=== PATIENT | male | born 1965 | race Caucasian/White ===

== ENCOUNTER 2016-12-14 08:33 | Inpatient (IN) | payer BC ==
[~2016-12-14] VITALS: Ht 177.8 cm; Wt 79.0 kg
[~2016-12-14 08:33] MED LIST: CLC150 PO
[2016-12-14] MEDS ORDERED: ONDANSETRON INJ 2 MG/ML 2 ML VIAL IV STA (08:45)
[2016-12-14] MEDS ORDERED: ACETAMINOPHEN 500 MG TAB PO STA (08:45)
[2016-12-14] MEDS ORDERED: KETOROLAC TROMETHAMINE 30 MG/ML VIAL IV STA (08:45)
[2016-12-14] MEDS ORDERED: LORAZEPAM 2 MG/ML 1 ML VIAL IV STA (08:51)
[2016-12-14] MEDS ORDERED: CEFTRIAXONE SOD INJ 2,000 MG in DEXTROSE 5% 50ML 50 ML IV STA (08:51)
[2016-12-14] MEDS ORDERED: DEXAMETHASONE SOD INJ 10 MG/ML VIAL IV ONE (09:00)
--- NOTE | 2016-12-14 09:01 | EMERGENCY ROOM VISIT NOTE ---
History Report prepared by Cristal: Jourdan Vazquez Under the Supervision of: Dr. Nash Bryant M.D. First contact with patient: 08:43 Chief Complaint: FEVER Stated Complaint: FEVER, HEADACHE History of Present Illness The patient is a 51 year old male who presents to the Emergency Room with complaints of a persistent illness that started around 2 days ago. He states that he went to bed 3 days ago feeling fine, and overnight, he started getting a headache, which kept him up. The patient says he rarely gets headaches. He continued to have a headache even after taking pain medication. He describes the headache as the worst headache of his life, and a 9 out of 10 in severity. He is nauseated, and has had a worsening fever that started around the same time as the onset of the headache. The patient notes a stiff neck and joint stiffness. He went to his family clinic this morning, and was told to come here for concern of meningitis. The patient denies a cough, current sore throat, vomiting, diarrhea, rash, or urinary symptoms. The patient took Advil last evening with no relief. He did have a bout of laryngitis a week ago, but there was no overlap with this current illness. He denies any heart or liver issues. He is allergic to Penicillins. Source of History: patient Onset: 2 days ago Position: other (global - illness) Symptom Intensity: worst headache of life Timing: other (persistent) Associated Symptoms: + fevers, + headache, + nausea, No cough, No diarrhea, No rash, No sorethroat, No urinary symptoms, No vomiting Note: Associated symptoms: Stiff neck and joint stiffness. Review of Systems See HPI for pertinent positives & negatives. A total of 10 systems reviewed and were otherwise negative. Past Medical & Surgical Medical Problems: (1) No chronic problems (2) Viral meningitis, unspecified Family History FH: heart disease Social History Smoking Status: Never Smoker Marital Status: single Occupation Status: employed Current/Historical Medications Scheduled Atorvastatin (Lipitor), 10 MG PO HS Bupropion Hcl (Wellbutrin Xl), 150 MG PO QAM Allergies Coded Allergies: Penicillins (Unverified Allergy, Mild, 12/14/16) Physical Exam Vital Signs Date Time Temp Pulse Resp B/P Pulse Ox O2 Delivery O2 Flow Rate FiO2 12/14/16 12:10 93 Room Air 12/14/16 12:00 82 16 118/70 12/14/16 11:00 112/68 12/14/16 10:56 37.5 82 16 116/66 93 Room Air 12/14/16 09:50 86 15 142/88 93 Room Air 12/14/16 09:20 90 12/14/16 09:12 96 Room Air 12/14/16 08:38 37.8 89 16 142/86 96 Physical Exam GENERAL: Patient is in no acute distress. HEENT: No acute trauma, normocephalic atraumatic, mucous membranes moist, no nasal congestion, no scleral icterus. No throat erythema. NECK: Tenderness to posterior neck muscle bilaterally where they insert onto scalp. No adenopathy. Trachea is midline. Neck soreness to flex the chin to chest. LUNGS: Clear to auscultation bilaterally, no wheeze, no rhonchi, breath sounds equal. HEART: Without murmurs gallops or rubs, regular rate and rhythm. ABDOMEN: Soft, nontender, bowel sounds positive, no hernias, no peritonitis. EXTREMITIES: No cyanosis or edema, full range of motion of all the joints without pain or difficulty, no signs for acute trauma. NEUROLOGIC: Oriented x 3, no acute motor or sensory deficits, no focal weakness. SKIN: No rash, no jaundice, no diaphoresis. Medical Decision & Procedures ER Provider Diagnostic Interpretation: X ray results and stated below per my interpretation and radiologist interpretation. Other radiology results and stated below per my review and radiologist interpretation: CT HEAD WITHOUT CONTRAST (CT) CLINICAL HISTORY: Severe headache COMPARISON STUDY: No previous studies for comparison. TECHNIQUE: Axial CT of the brain is performed from the vertex to the skull base. IV contrast was not administered for this examination. CT DOSE: 614.27 mGy.cm FINDINGS: No intra or extra-axial mass lesions are visualized. There is no CT evidence of acute cortical infarction. There is no evidence of midline shift. There is no acute hemorrhage. No calvarial fractures are visualized. There is no evidence of pathologic ventricular dilatation. There is no evidence of acute sinusitis IMPRESSION: No acute intracranial findings Electronically signed by: Jan Hyde M.D. 12/14/2016 9:46 AM Dictated Date/Time: 12/14/2016 9:42 AM CHEST ONE VIEW PORTABLE CLINICAL HISTORY: Evaluate Fever/Sepsis COMPARISON STUDY: None FINDINGS: The heart is normal in size. There is no failure. There is no focal pulmonary consolidation. There is an 11 mm nodule at the right lung base, possibly representing a summation with a nipple shadow. No pleural effusions are visualized.[ IMPRESSION: 11 mm opacity at the right lung base. This may represent a summation with a nipple shadow. A follow-up study with nipple markers and oblique views could be obtained for confirmation. There is no acute parenchymal consolidation. Electronically signed by: Jan Hyde M.D. 12/14/2016 9:20 AM Dictated Date/Time: 12/14/2016 9:19 AM Laboratory Results 12/14/16 09:15 Red Blood Count 4.36, Mean Corpuscular Volume 93.6, Mean Corpuscular Hemoglobin 33.3, Mean Corpuscular Hemoglobin Concent 35.5, Mean Platelet Volume 9.1, Neutrophils (%) (Auto) 73.4, Lymphocytes (%) (Auto) 20.1, Monocytes (%) (Auto) 5.0, Eosinophils (%) (Auto) 1.2, Basophils (%) (Auto) 0.2, Neutrophils # (Auto) 6.34, Lymphocytes # (Auto) 1.74, Monocytes # (Auto) 0.43, Eosinophils # (Auto) 0.10, Basophils # (Auto) 0.02 12/14/16 09:15 Test 12/14/16 09:15 12/14/16 09:25 12/14/16 09:55 12/14/16 10:35 White Blood Count 8.64 K/uL (4.8-10.8) Red Blood Count 4.36 M/uL (4.7-6.1) Hemoglobin 14.5 g/dL (14.0-18.0) Hematocrit 40.8 % (42-52) Mean Corpuscular Volume 93.6 fL (80-100) Mean Corpuscular Hemoglobin 33.3 pg (25-34) Mean Corpuscular Hemoglobin Concent 35.5 g/dl (32-36) Platelet Count 229 K/uL (130-400) Mean Platelet Volume 9.1 fL (7.4-10.4) Neutrophils (%) (Auto) 73.4 % Lymphocytes (%) (Auto) 20.1 % Monocytes (%) (Auto) 5.0 % Eosinophils (%) (Auto) 1.2 % Basophils (%) (Auto) 0.2 % Neutrophils # (Auto) 6.34 K/uL (1.4-6.5) Lymphocytes # (Auto) 1.74 K/uL (1.2-3.4) Monocytes # (Auto) 0.43 K/uL (0.11-0.59) Eosinophils # (Auto) 0.10 K/uL (0-0.5) Basophils # (Auto) 0.02 K/uL (0-0.2) RDW Standard Deviation 41.7 fL (36.4-46.3) RDW Coefficient of Variation 12.4 % (11.5-14.5) Immature Granulocyte % (Auto) 0.1 % Immature Granulocyte # (Auto) 0.01 K/uL (0.00-0.02) Anion Gap 8.0 mmol/L (3-11) Est Creatinine Clear Calc Drug Dose 67.9 ml/min Estimated GFR () 72.2 Estimated GFR (Non- 62.3 BUN/Creatinine Ratio 6.2 (10-20) Calcium Level 8.6 mg/dl (8.5-10.1) Total Bilirubin 1.1 mg/dl (0.2-1) Aspartate Amino Transf (AST/SGOT) 20 U/L (15-37) Alanine Aminotransferase (ALT/SGPT) 24 U/L (12-78) Alkaline Phosphatase 68 U/L (45-117) Total Protein 6.8 gm/dl (6.4-8.2) Albumin 3.9 gm/dl (3.4-5.0) Globulin 2.9 gm/dl (2.5-4.0) Albumin/Globulin Ratio 1.3 (0.9-2) Lyme Disease IgG Antibody NEG (NEG) Lyme Disease IgM Antibody NEG (NEG) Influenza Type A (RT-PCR) Neg for Influ A (NEG) Influenza Type B (RT-PCR) Neg for Influ B (NEG) Urine Color YELLOW Urine Appearance CLEAR (CLEAR) Urine pH 5.5 (4.5-7.5) Urine Specific [place] 1.019 (1.000-1.030) Urine Protein NEG (NEG) Urine Glucose (UA) NEG (NEG) Urine Ketones TRACE (NEG) Urine Occult Blood NEG (NEG) Urine Nitrite NEG (NEG) Urine Bilirubin NEG (NEG) Urine Urobilinogen NEG (NEG) Urine Leukocyte Esterase NEG (NEG) CSF Color COLORLESS CSF Appearance CLEAR CSF WBC 170 /uL (0-5) CSF RBC 0 /uL (0) CSF Polynuclear WBCs 3.0 % CSF Mononuclear WBCs 97.0 % CSF Xanthrochromic NO XANTHOCHROMIA CSF Cell Count Tube # 4 CSF Mononuclear WBCs % % CSF Polynuclear WBCs (%) % CSF Chemistry Tube # 2 CSF Glucose 47 mg/dl (40-70) CSF Total Protein 91.1 mg/dl (15.0-45.0) Laboratory results reviewed by me. Medications Administered Medications (Trade) Dose Ordered Sig/Darrin Route Start Time Stop Time Status Last Admin Dose Admin Ondansetron HCl (Zofran Inj) 4 mg NOW STAT IV 12/14/16 08:45 12/14/16 08:48 DC 12/14/16 09:13 4 MG Morphine Sulfate (MoRPHine SULFATE INJ) 4 mg Q15M PRN IV 12/14/16 08:45 12/14/16 12:15 DC 12/14/16 09:53 4 MG Ketorolac Tromethamine (Toradol Inj) 30 mg NOW STAT IV 12/14/16 08:45 12/14/16 08:48 DC 12/14/16 09:18 30 MG Acetaminophen (Tylenol Tab) 1,000 mg NOW STAT PO 12/14/16 08:45 12/14/16 08:48 DC 12/14/16 09:20 1,000 MG Lorazepam (Ativan Inj) 0.5 mg NOW STAT IV 12/14/16 08:51 12/14/16 08:53 DC 12/14/16 09:19 0.5 MG Dexamethasone Sodium Phosphate 10 mg 10 mg NOW ONCE IV 12/14/16 09:00 12/14/16 09:01 DC 12/14/16 09:16 10 MG Ceftriaxone Sodium/Dextrose (Rocephin Inj/D5 50ml) 70 ml @ 100 mls/hr ONE STAT IV 12/14/16 08:51 12/14/16 09:32 DC 12/14/16 09:49 100 MLS/HR Hydromorphone HCl 0.5 mg 0.5 mg NOW STAT IV 12/14/16 10:41 12/14/16 10:43 DC 12/14/16 10:54 0.5 MG Sodium Chloride (Nss 500ml) 500 ml @ 999 mls/hr Q31M STAT IV 12/14/16 10:43 12/14/16 11:13 DC 12/14/16 10:56 999 MLS/HR Hydromorphone HCl (Dilaudid Inj) 0.5 mg Q3H PRN IV 12/14/16 12:15 12/28/16 12:14 12/14/16 13:57 0.5 MG Procedure Lumbar Puncture Indication: Headache and stiff neck with fever. Verbal consent was obtained after the risks and benefits were explained, including but not limited to headache, bleeding/clotting, scarring, infection, pain, and bone/joint/nerve damage. At this time, the risks of the procedure are less than the risks of NOT performing the procedure. A time out was taken and the correct patient and site identified. The patient was placed in the seated position and the back was prepped with betadine and draped in the standard fashion. The L3 intervertebral space was identified, anesthetized locally with 1 % lidocaine without epinephrine, and the spinal needle was inserted through the skin with the bevel parallel to the dural fibers. The needle was carefully advanced into the lumbar cistern and 4 tubes of clear CSF was obtained. The stylet was replaced and the needle was removed. A bandaid was placed and the patient was placed in the supine position. The patient tolerated the procedure well and there were no complications. ED Course 0844: The patient was evaluated in room B9. A complete history and physical exam was performed. 0845: Ordered Tylenol Tab 1000 mg PO, Toradol Inj 30 mg IV, Morphine Sulfate Inj 4 mg IV PRN, Zofran Inj 4 mg IV. 0851: Ordered Ceftriaxone Sodium 2000 mg/Dextrose 70 ml @ 100 mls/hr IV, Ativan Inj 0.5 mg IV. 0900: Ordered Decadron Inj 10 mg IV. 1024: I performed a lumbar puncture on the patient. It went well. 1041: Ordered Dilaudid Inj 0.5 mg IV. 1043: Ordered NSS 500 ml @ 999 mls/hr IV. 1139: Upon reexamination the patient is resting comfortably. I discussed results and treatment plan with the patient. He verbalizes agreement and understanding. The patient will be evaluated for further management. 1143: I discussed the patient with Dr. Rolon - [facility] [place] cutter operator asbestos shingle - he will evaluate the patient for further treatment. Medical Decision Differential diagnosis includes but is not limited to meningitis, viral illness , pharyngitis, intracranial bleeding, Lyme disease, pneumonia, UTI. There is no leukocytosis or concerning anemia. No significant electrolyte abnormality, kidney failure or hepatitis. Influenza testing is negative. Lyme disease testing is negative. Brain CT shows no acute bleed or mass effect. Chest x-ray does not show pneumonia or CHF, a possible nipple shadow was noted on the chest film. Urinalysis does not show evidence for infection. The patient was at risk for meningitis, a lumbar puncture was performed without complication. The CSF results do show findings consistent with meningitis. The patient received IV saline, IV ceftriaxone, IV Decadron. He was given IV morphine, IV Zofran and IV Dilaudid. He received IV Toradol. The patient received oral Tylenol. The patient seems more comfortable. I do think admission/observation is warranted given the meningitis findings, I did talk to the patient, I talked with case management. The on-call hospitalist was consulted. Consults Time Called: 1140 Consulting Physician: Dr. Gonzales WRIGHT cutter operator asbestos sh[employer] Returned Call: 1143 I discussed the patient with Dr. Gonzales WRIGHT cutter operator [employer] shingle - he will evaluate the patient for further treatment. Impression Primary Impression: Meningitis Scribe Attestation The scribe's documentation has been prepared under my direction and personally reviewed by me in its entirety. I confirm that the note above accurately reflects all work, treatment, procedures, and medical decision making performed by me. Departure Information Dispostion Being Evaluated By Hospitalist Referrals Ralph Philip M.D. (PCP) Patient Instructions My [facility]
[2016-12-14] MEDS ORDERED: BUPRTAB PO (09:07)
[2016-12-14] MEDS ORDERED: ATOR10TA88 PO (09:07)
[2016-12-14 09:19] LABS: BASO % 0.2 %; BASO ABS # 0.02 K/uL (0-0.2); COMPLETE YES; EOS % 1.2 %; HEMATOCRIT 40.8 % (42-52); IG% 0.1 %; LYMPH % 20.1 %; LYMPH ABS # 1.74 K/uL (1.2-3.4); MEAN CELL VOLUME 93.6 fL (80-100); MEAN CORPUSCULAR HEMOGLOBIN 33.3 pg (25-34); MEAN CORPUSCULAR HGB CONC 35.5 g/dl (32-36); MEAN PLATELET VOLUME 9.1 fL (7.4-10.4); NEUT % 73.4 %; PLATELET COUNT 229 K/uL (130-400); RED BLOOD COUNT 4.36 M/uL (4.7-6.1); WHITE BLOOD COUNT 8.64 K/uL (4.8-10.8)
[2016-12-14] MEDS: MoRPHine SULFATE 4 MG/ML 1 ML CARP\\VIAL IV PRN ×2 (09:19→09:53)
--- NOTE | 2016-12-14 09:21 | DIAGNOSTIC IMAGING REPORT ---
CHEST ONE VIEW PORTABLE CLINICAL HISTORY: Evaluate Fever/Sepsis COMPARISON STUDY: None FINDINGS: The heart is normal in size. There is no failure. There is no focal pulmonary consolidation. There is an 11 mm nodule at the right lung base, possibly representing a summation with a nipple shadow. No pleural effusions are visualized.[ IMPRESSION: 11 mm opacity at the right lung base. This may represent a summation with a nipple shadow. A follow-up study with nipple markers and oblique views could be obtained for confirmation. There is no acute parenchymal consolidation. Electronically signed by: Jan Hyde M.D. 12/14/2016 9:20 AM Dictated Date/Time: 12/14/2016 9:19 AM
[2016-12-14 09:34] LABS: BUN/CREATININE RATIO 6.2 (10-20); CALCIUM 8.6 mg/dl (8.5-10.1); CREATININE 1.3 mg/dl (0.60-1.40); POTASSIUM 4.1 mmol/L (3.5-5.1)
[2016-12-14 09:38] LABS: ALB/GLOB RATIO 1.3 (0.9-2)
--- NOTE | 2016-12-14 09:47 | DIAGNOSTIC IMAGING REPORT ---
CT HEAD WITHOUT CONTRAST (CT) CLINICAL HISTORY: Severe headache COMPARISON STUDY: No previous studies for comparison. TECHNIQUE: Axial CT of the brain is performed from the vertex to the skull base. IV contrast was not administered for this examination. CT DOSE: 614.27 mGy.cm FINDINGS: No intra or extra-axial mass lesions are visualized. There is no CT evidence of acute cortical infarction. There is no evidence of midline shift. There is no acute hemorrhage. No calvarial fractures are visualized. There is no evidence of pathologic ventricular dilatation. There is no evidence of acute sinusitis IMPRESSION: No acute intracranial findings Electronically signed by: Jan Hyde M.D. 12/14/2016 9:46 AM Dictated Date/Time: 12/14/2016 9:42 AM
[2016-12-14 10:12] LABS: URINE APPEARANCE CLEAR (CLEAR); URINE BILIRUBIN NEG (NEG); URINE COLOR YELLOW; URINE NITRITE NEG (NEG); URINE PH 5.5 (4.5-7.5); URINE SPECIFIC GRAVITY 1.019 (1.000-1.030); UROBILINOGEN NEG (NEG); ZZUR CULT IF INDIC CLEAN CATCH NO
[2016-12-14 10:16] LABS: MANUAL MICROSCOPIC REQUIRED? NO; REVIEW REQ? NO
[2016-12-14] MEDS ORDERED: LIDOCAINE HCL 1% 20 ML VIAL ONE (10:18)
[2016-12-14 10:27] LABS: LYME DISEASE AB IGG NEG (NEG)
[2016-12-14 10:28] LABS: LYME DISEASE AB IGM NEG (NEG)
[2016-12-14] MEDS ORDERED: HYDROmorphone INJ 2 MG/ML SYR/VIAL IV STA (10:41)
[2016-12-14] MEDS ORDERED: SODIUM CHLORIDE 0.9% 500ML 500 ML IV STA (10:43)
[2016-12-14 11:00] LABS: INFLUENZA A PCR Neg for Influ A (NEG); INFLUENZA B PCR Neg for Influ B (NEG)
[2016-12-14 11:08] LABS: CSF CHEMISTRY TUBE # 2
[2016-12-14 11:13] LABS: CSF TOTAL PROTEIN 91.1 mg/dl (15.0-45.0)
[2016-12-14 12:10] VITALS: O2SAT 93; Ht 177.8 cm; Wt 79.0 kg
[2016-12-14 12:11] LABS: CSF APPEARANCE CLEAR; CSF COLOR COLORLESS; CSF XANTHOCHROMIC NO XANTHOCHROMIA
[2016-12-14] MEDS ORDERED: ZOLPIDEM TARTRATE 5 MG TAB PO PRN (12:15)
[2016-12-14] MEDS ORDERED: ACETAMINOPHEN 325 MG TAB PO PRN (12:15)
[2016-12-14] MEDS ORDERED: ONDANSETRON INJ 2 MG/ML 2 ML VIAL IV PRN (12:15)
[2016-12-14] MEDS ORDERED: POLYETHYLENE (MIRALAX) 17 GM PACK PO PRN (12:15)
[2016-12-14] MEDS ORDERED: MAGNESIUM HYDROXIDE SUSP 30 ML UDC PO PRN (12:15)
[2016-12-14] MEDS ORDERED: ALUMINUM/MAGNESIUM/SIMETH (MAALOX MAX) 30 ML UDC PO PRN (12:15)
[2016-12-14 13:07] VITALS: O2SAT 93
--- NOTE | 2016-12-14 13:07 | History and Physical ---
History & Physical Date & Time of Service: Dec 14, 2016 at 12:27 Chief Complaint: Fever, Headache Primary Care Physician: Ralph Philip M.D. History of Present Illness Source: patient 51 y/o M history of depression and HPL. Pt had laryngitis 1 week prior which improved without treatment. He had been to [place] over the weekend and upon returning developed an intense headache which kept him awake overnight and did not respond to standard [id number] treatment. He describes an associated fever and nausea. He did not have visual changes. He denies current throat pain, productive cough, vomiting, diarrhea or dysuria. He does not recall any sick contacts during his [employer] trip[place] in the surrounding area. An LP was performed in the ER the results of which appear consistent with viral meningitis. Past Medical/Surgical History Medical Problems: (1) No chronic problems Status: Chronic Family History FH: heart disease Father from aspiration pneumonia due to Parkinson's disease Social History Smoking Status: Never Smoker Marital Status: single Occupational Status: employed Multi-Drug Resistant Organisms History of MDRO: No Allergies Coded Allergies: Penicillins (Unverified Allergy, Mild, 12/14/16) Home Medications Scheduled Atorvastatin (Lipitor), 10 MG PO HS Bupropion Hcl (Wellbutrin Xl), 150 MG PO QAM Review of Systems Constitutional: + chills, + fever, + sweats Eyes: No eye pain, No worsening of vision ENT: + sore throat (Larungitis - resolved), No hearing loss, No nasal symptoms , No unusual epistaxis Respiratory: No cough, No sputum, No wheezing Cardiovascular: No PND, No chest pain, No orthopnea Abdomen: No nausea, No pain, No vomiting Musculoskeletal: No joint pain Genitourinary - Male: No dysuria, No hematuria Neurologic: + problem reported (Severe headache), No memory loss, No paralysis Psychiatric: No anhedonism, No depression symptoms Endocrine: No fatigue Hematologic / Lymphatic: No abnormal bleeding/bruising Integumentary: No rash Allergic / Immunologic: No environmental allergies Physical Exam Vital Signs Date Time Temp Pulse Resp B/P Pulse Ox O2 Delivery O2 Flow Rate FiO2 12/14/16 10:56 37.5 82 16 116/66 93 Room Air 12/14/16 09:50 86 15 142/88 93 Room Air 12/14/16 09:20 90 12/14/16 09:12 96 Room Air 12/14/16 08:38 37.8 89 16 142/86 96 General Appearance: WD/WN, no apparent distress Head: normocephalic, atraumatic Eyes: normal inspection, PERRL, EOMI Neck: + pertinent finding (Some neck stiffness is present ) Respiratory/Chest: chest non-tender, lungs clear, normal breath sounds, no respiratory distress, no accessory muscle use Cardiovascular: regular rate, rhythm, no edema, no gallop, no JVD, no murmur, normal peripheral pulses Abdomen/GI: normal bowel sounds, non tender, soft Back: normal inspection, no CVA tenderness, no muscle spasm, normal range of motion Extremities/Musculoskelatal: normal inspection, no calf tenderness, normal capillary refill, no pedal edema, normal range of motion Neurologic/Psych: battery starter II-XII nml as tested, no motor/sensory deficits, alert, normal mood/affect, normal reflexes, oriented x 3, + pertinent finding (No significant photophobia) Skin: normal color, warm/dry, no rash Diagnostics Laboratory Results Results Past 24 Hours Test 12/14/16 09:15 12/14/16 09:25 12/14/16 09:55 12/14/16 10:35 Range/Units White Blood Count 8.64 4.8-10.8 K/uL Red Blood Count 4.36 4.7-6.1 M/uL Hemoglobin 14.5 14.0-18.0 g/dL Hematocrit 40.8 42-52 % Mean Corpuscular Volume 93.6 80-100 fL Mean Corpuscular Hemoglobin 33.3 25-34 pg Mean Corpuscular Hemoglobin Concent 35.5 32-36 g/dl Platelet Count 229 130-400 K/uL Mean Platelet Volume 9.1 7.4-10.4 fL Neutrophils (%) (Auto) 73.4 % Lymphocytes (%) (Auto) 20.1 % Monocytes (%) (Auto) 5.0 % Eosinophils (%) (Auto) 1.2 % Basophils (%) (Auto) 0.2 % Neutrophils # (Auto) 6.34 1.4-6.5 K/uL Lymphocytes # (Auto) 1.74 1.2-3.4 K/uL Monocytes # (Auto) 0.43 0.11-0.59 K/uL Eosinophils # (Auto) 0.10 0-0.5 K/uL Basophils # (Auto) 0.02 0-0.2 K/uL RDW Standard Deviation 41.7 36.4-46.3 fL RDW Coefficient of Variation 12.4 11.5-14.5 % Immature Granulocyte % (Auto) 0.1 % Immature Granulocyte # (Auto) 0.01 0.00-0.02 K/uL Sodium Level 141 136-145 mmol/L Potassium Level 4.1 3.5-5.1 mmol/L Chloride Level 108 98-107 mmol/L Carbon Dioxide Level 25 21-32 mmol/L Anion Gap 8.0 3-11 mmol/L Blood Urea Nitrogen 8 7-18 mg/dl Creatinine 1.30 0.60-1.40 mg/dl Est Creatinine Clear Calc Drug Dose 67.9 ml/min Estimated GFR () 72.2 Estimated GFR (Non- 62.3 BUN/Creatinine Ratio 6.2 10-20 Random Glucose 106 70-99 mg/dl Calcium Level 8.6 8.5-10.1 mg/dl Total Bilirubin 1.1 0.2-1 mg/dl Aspartate Amino Transf (AST/SGOT) 20 15-37 U/L Alanine Aminotransferase (ALT/SGPT) 24 12-78 U/L Alkaline Phosphatase 68 45-117 U/L Total Protein 6.8 6.4-8.2 gm/dl Albumin 3.9 3.4-5.0 gm/dl Globulin 2.9 2.5-4.0 gm/dl Albumin/Globulin Ratio 1.3 0.9-2 Lyme Disease IgG Antibody NEG NEG Lyme Disease IgM Antibody NEG NEG Influenza Type A (RT-PCR) Neg for Influ A NEG Influenza Type B (RT-PCR) Neg for Influ B NEG Urine Color YELLOW Urine Appearance CLEAR CLEAR Urine pH 5.5 4.5-7.5 Urine Specific [place] 1.019 1.000-1.030 Urine Protein NEG NEG Urine Glucose (UA) NEG NEG Urine Ketones TRACE NEG Urine Occult Blood NEG NEG Urine Nitrite NEG NEG Urine Bilirubin NEG NEG Urine Urobilinogen NEG NEG Urine Leukocyte Esterase NEG NEG CSF Color COLORLESS CSF Appearance CLEAR CSF WBC 170 0-5 /uL CSF RBC 0 0 /uL CSF Polynuclear WBCs 3.0 % CSF Mononuclear WBCs 97.0 % CSF Xanthrochromic NO XANTHOCHROMIA CSF Cell Count Tube # 4 CSF Mononuclear WBCs % % CSF Polynuclear WBCs (%) % CSF Chemistry Tube # 2 CSF Glucose 47 40-70 mg/dl CSF Total Protein 91.1 15.0-45.0 mg/dl Test 12/14/16 12:12 Range/Units Microbiology Results 12/14/16 Blood Culture, Received Pending 12/14/16 Blood Culture, Received Pending 12/14/16 Gram Stain - Final, Resulted 12/14/16 CSF Culture, Resulted Pending Diagnostic Radiology No acute findings on head CT Impression Assessment and Plan 51 y/o M history of depression and HPL. Pt had laryngitis 1 week prior which improved without treatment. He had been to [place] over the weekend and upon returning developed an intense headache which kept him awake overnight and did not respond to standard [id number] treatment. He describes an associated fever and nausea. An LP was performed in the ER the results of which appear consistent with viral meningitis. 1) Meningitis - likely viral - pt was provided with a dose of antibiotics and Decadron prior to the LP results - The results are more consistent with viral than bacterial meningitis. We will request an ID consult and treat supportively with analgesics and IVF 2) HPL - cont Lipitor 3) Depression - cont Wellbutrin SCDs only due to LP - full code Total time for this admit including review of labs, records, meds, imaging - discussion with pt and ER attending - 35 min Level of Care Med/Surg Resuscitation Status FULL RESUSCITATION VTE Prophylaxis VTE Risk Assessment Done? Y/N: Yes Risk Level: Low Given or contraindicated: SCD's
[2016-12-14 13:20] VITALS: BP 153/83; PULSE 83; TEMP 36.7; O2SAT 94
[2016-12-14] MEDS: D5W AND NSS 1,000 ML IV SCH ×2 (13:57→21:33)
[2016-12-14] MEDS: HYDROmorphone INJ 0.5 MG/0.5 ML SYR IV PRN ×2 (13:57→20:03)
[2016-12-14 15:07] VITALS: BP 119/76; PULSE 74; TEMP 36.6; O2SAT 95
--- NOTE | 2016-12-14 15:26 | Medical Consult ---
Consultation Date of Consultation: Dec 14, 2016. Attending Physician: Arturo Wright MD Reason for Consultation: Meningitis History of Present Illness Patient is a 51 yo male who presented to the ED with concerns of severe headache and neck pain. The patient had just returned from a conference in [facility] when he began to have fever, neck pain, and headache at home. He described the headache as the worst headache of his life and a 9-10/10 pain. He could not move his head at all without severe pain. He also felt like every vertebrae of his neck was hurting him when he would walk or move. He was evaluated at his PCP's office prior to presentation but was told to come to the ED due to concerns for meningitis. The patient otherwise has had no associated symptoms. He did have a sore throat and laryngitis last week. His sore throat has resolved but his voice is not 100% yet. Since admission, the patient had a CT scan of the head which showed no acute process, CXR which showed 11 mm opacity of the RLL which could be a nipple shadow and otherwise no acute process , and LP was completed. CSF showed 170 WBCs and elevated protein. Lyme screens were negative. Flu PCR negative as well. CSF gram stain is showing no organisms but CSF culture and blood cultures are pending. Patient did receive a dose of IV Ceftriaxone this morning. His headache is a 7/10 currently. He states that he has no history of HSV 1 or 2 that he knows of. He gets tested for HIV yearly and has been negative in the past. He was last tested about 1 year ago. Past Medical/Surgical History Medical Problems: (1) Meningitis Status: Acute Medical Problems: (1) No chronic problems (2) Viral meningitis, unspecified Family History FH: heart disease Noncontributory Social History Smoking Status: Never Smoker Marital Status: single Occupation Status: employed Allergies Coded Allergies: Penicillins (Unverified Allergy, Mild, 12/14/16) Home Medications Reported Home Medications Medications Dose Route/Sig Max Daily Dose Days Date Category Lipitor (Atorvastatin Calcium) 10 Mg Tab 10 Mg PO HS 12/14/16 Reported Wellbutrin Xl (Bupropion Hcl) 150 Mg Tab 150 Mg PO QAM 30 12/14/16 Reported Current Inpatient Medications Current Inpatient Medications Medications (Trade) Dose Ordered Sig/Darrin Route Start Time Stop Time Status Last Admin Dose Admin Hydromorphone HCl (Dilaudid Inj) 0.5 mg Q3H PRN IV 12/14/16 12:15 12/28/16 12:14 12/14/16 13:57 0.5 MG Ketorolac Tromethamine 15 mg 15 mg Q6H PRN IV 12/14/16 18:00 12/16/16 12:00 Dextrose/Sodium Chloride (D5W And Nss) 1,000 ml @ 125 mls/hr Q8H IV 12/14/16 13:30 01/13/17 13:29 12/14/16 13:57 125 MLS/HR Acetaminophen (Tylenol Tab) 650 mg Q4H PRN PO 12/14/16 12:15 01/13/17 12:14 Al Hydrox/Mg Hydrox/Simethicone (Maalox Max Susp) 15 ml Q4H PRN PO 12/14/16 12:15 01/13/17 12:14 Magnesium Hydroxide (Milk Of Magnesia Susp) 30 ml Q6H PRN PO 12/14/16 12:15 01/13/17 12:14 Polyethylene (Miralax Powder Packet) 17 gm DAILY PRN PO 12/14/16 12:15 01/13/17 12:14 Zolpidem Tartrate (Ambien Tab) 5 mg HSZ PRN PO 12/14/16 12:15 01/13/17 12:14 Ondansetron HCl (Zofran Inj) 4 mg Q6H PRN IV 12/14/16 12:15 01/13/17 12:14 Atorvastatin Calcium (Lipitor Tab) 10 mg HS PO 12/14/16 21:00 01/13/17 20:59 Bupropion HCl (Wellbutrin-Xl Tab) 150 mg QAM PO 12/15/16 08:00 01/14/17 08:59 Review of Systems Constitutional: + chills, + fatigue, + fever, + sweats Eyes: No worsening of vision ENT: + problem reported (laryngitis last week- now almost completely resolved) , + sore throat (last week- now resolved), No hearing loss Respiratory: No cough, No shortness of breath Cardiovascular: No chest pain, No palpitations Abdomen: + nausea (this morning- now resolved), No diarrhea, No pain, No vomiting Musculoskeletal: + joint pain (neck pain), No calf pain, No swelling Genitourinary - Male: No dysuria, No hematuria Neurologic: + problem reported (severe headache 07/18 on admission, now 04/17) Integumentary: No itch, No rash Physical Exam Date Time Temp Pulse Resp B/P Pulse Ox O2 Delivery O2 Flow Rate FiO2 12/14/16 15:07 36.6 74 20 119/76 95 Room Air 12/14/16 13:20 36.7 83 18 153/83 94 Room Air 12/14/16 13:07 81 16 118/70 93 12/14/16 12:29 81 12/14/16 12:10 93 Room Air 12/14/16 12:00 82 16 118/70 12/14/16 11:00 112/68 12/14/16 10:56 37.5 82 16 116/66 93 Room Air 12/14/16 09:50 86 15 142/88 93 Room Air 12/14/16 09:20 90 12/14/16 09:12 96 Room Air 12/14/16 08:38 37.8 89 16 142/86 96 General Appearance: WD/WN, no apparent distress Head: normocephalic, atraumatic Eyes: normal inspection, sclerae normal ENT: hearing grossly normal Neck: supple, trachea midline Respiratory/Chest: chest non-tender, lungs clear, normal breath sounds, no respiratory distress, no accessory muscle use Cardiovascular: regular rate, rhythm, no murmur Abdomen/GI: normal bowel sounds, non tender, soft Extremities/Musculoskelatal: normal range of motion Neurologic/Psych: alert, normal mood/affect Skin: normal color, warm/dry, no rash Laboratory Results CT HEAD WITHOUT CONTRAST (CT) CLINICAL HISTORY: Severe headache COMPARISON STUDY: No previous studies for comparison. TECHNIQUE: Axial CT of the brain is performed from the vertex to the skull base. IV contrast was not administered for this examination. CT DOSE: 614.27 mGy.cm FINDINGS: No intra or extra-axial mass lesions are visualized. There is no CT evidence of acute cortical infarction. There is no evidence of midline shift. There is no acute hemorrhage. No calvarial fractures are visualized. There is no evidence of pathologic ventricular dilatation. There is no evidence of acute sinusitis IMPRESSION: No acute intracranial findingsv RUN DATE: 12/14/16 [facility] LAB PAGE 1 RUN TIME: 1157 Specimen Inquiry PATIENT: OSMAN SMALL Femi LOC: [facility] U # : [id number] AGE/SX: 51/M ROOM: REG : 12/14/[address]: Nash Bryant M.D. : 1965 BED: DIS : STATUS: REG ER TLOC: SPEC #: [id number] NIKOLAY: 12/14/16 STATUS: RES REQ #: [id number] RECD: 12/14/[address]: Nash Bryant M.D. SOURCE: CSF ENTR: 12/14/[address]: Ralph Philip M.D. SPDESC: ORDERED: CSF CULT/SMR COMMENTS: Comments to Deputy Sheriff Custody TUBE # 3 TUBE # TO USE FOR SPINAL FLUID CELL CULTURE= 3 Procedure Result Verified Site GRAM STAIN Final 12/14/16-1157 RESULT MANY WBCs SEEN NO ORGANISMS SEEN CSF CULTURE PENDING Item Value Date Time Gram Stain - Final Resulted 12/14/16 1035 Cerebral Spinal Fluid Blood Culture Received 12/14/16 0905 Blood Pending Blood Culture Received 12/14/16 0900 Blood Pending Last 24 Hours Test 12/14/16 09:15 12/14/16 09:25 12/14/16 09:55 12/14/16 10:35 White Blood Count 8.64 K/uL Red Blood Count 4.36 M/uL Hemoglobin 14.5 g/dL Hematocrit 40.8 % Mean Corpuscular Volume 93.6 fL Mean Corpuscular Hemoglobin 33.3 pg Mean Corpuscular Hemoglobin Concent 35.5 g/dl Platelet Count 229 K/uL Mean Platelet Volume 9.1 fL Neutrophils (%) (Auto) 73.4 % Lymphocytes (%) (Auto) 20.1 % Monocytes (%) (Auto) 5.0 % Eosinophils (%) (Auto) 1.2 % Basophils (%) (Auto) 0.2 % Neutrophils # (Auto) 6.34 K/uL Lymphocytes # (Auto) 1.74 K/uL Monocytes # (Auto) 0.43 K/uL Eosinophils # (Auto) 0.10 K/uL Basophils # (Auto) 0.02 K/uL RDW Standard Deviation 41.7 fL RDW Coefficient of Variation 12.4 % Immature Granulocyte % (Auto) 0.1 % Immature Granulocyte # (Auto) 0.01 K/uL Sodium Level 141 mmol/L Potassium Level 4.1 mmol/L Chloride Level 108 mmol/L Carbon Dioxide Level 25 mmol/L Anion Gap 8.0 mmol/L Blood Urea Nitrogen 8 mg/dl Creatinine 1.30 mg/dl Est Creatinine Clear Calc Drug Dose 67.9 ml/min Estimated GFR () 72.2 Estimated GFR (Non- 62.3 BUN/Creatinine Ratio 6.2 Random Glucose 106 mg/dl Calcium Level 8.6 mg/dl Total Bilirubin 1.1 mg/dl Aspartate Amino Transf (AST/SGOT) 20 U/L Alanine Aminotransferase (ALT/SGPT) 24 U/L Alkaline Phosphatase 68 U/L Total Protein 6.8 gm/dl Albumin 3.9 gm/dl Globulin 2.9 gm/dl Albumin/Globulin Ratio 1.3 Lyme Disease IgG Antibody NEG Lyme Disease IgM Antibody NEG Influenza Type A (RT-PCR) Neg for Influ A Influenza Type B (RT-PCR) Neg for Influ B Urine Color YELLOW Urine Appearance CLEAR Urine pH 5.5 Urine Specific [place] 1.019 Urine Protein NEG Urine Glucose (UA) NEG Urine Ketones TRACE Urine Occult Blood NEG Urine Nitrite NEG Urine Bilirubin NEG Urine Urobilinogen NEG Urine Leukocyte Esterase NEG CSF Color COLORLESS CSF Appearance CLEAR CSF WBC 170 /uL CSF RBC 0 /uL CSF Polynuclear WBCs 3.0 % CSF Mononuclear WBCs 97.0 % CSF Xanthrochromic NO XANTHOCHROMIA CSF Cell Count Tube # 4 CSF Mononuclear WBCs % % CSF Polynuclear WBCs (%) % CSF Chemistry Tube # 2 CSF Glucose 47 mg/dl CSF Total Protein 91.1 mg/dl Assessment & Plan Patient with meningitis likely of viral origin. He received a dose of IV Ceftriaxone this morning along with medications to help his headache. He is feeling slightly improved. Will continue IV Ceftriaxone until bacterial culture is resulted due to elevated WBC count and protein in CSF. Lyme negative. Will check HSV I & II IgG/IgM and will also check HIV screen. Will also start IV Acyclovir pending improvement. We will follow. Case reviewed and agree with above assessment, follow cultures, hsv pcr.
[2016-12-14] MEDS: ACYCLOVIR SOD INJ 750 MG in DEXTROSE 5% 250ML 250 ML IV SCH (16:01)
[2016-12-14] MEDS: KETOROLAC TROMETHAMINE 15 MG/ML VIAL IV PRN (16:17)
[2016-12-14] MEDS ORDERED: KETOROLAC TROMETHAMINE 15 MG/ML VIAL IV PRN (18:00)
[2016-12-14] MEDS: ATORVASTATIN 10 MG TAB PO SCH (21:33)
[2016-12-15] MEDS: ACYCLOVIR SOD INJ 750 MG in DEXTROSE 5% 250ML 250 ML IV SCH ×3 (00:01→15:36)
[2016-12-15] MEDS: KETOROLAC TROMETHAMINE 15 MG/ML VIAL IV PRN ×3 (00:01→15:35)
[2016-12-15 00:19] VITALS: BP 112/61; PULSE 80; TEMP 36.8; O2SAT 95
[2016-12-15 04:38] VITALS: BP 186/95; PULSE 50
[2016-12-15] MEDS: D5W AND NSS 1,000 ML IV SCH (05:42)
[2016-12-15 06:59] VITALS: BP 119/69; PULSE 72; TEMP 36.7; O2SAT 98
[2016-12-15] MEDS: HYDROmorphone INJ 0.5 MG/0.5 ML SYR IV PRN (07:56)
[2016-12-15] MEDS: BuPROPion XL 150 MG TABCR PO SCH (07:56)
[2016-12-15 08:02] LABS: BUN/CREATININE RATIO 11.6 (10-20); CALCIUM 7.8 mg/dl (8.5-10.1); MAGNESIUM 1.9 mg/dl (1.8-2.4); POTASSIUM 3.9 mmol/L (3.5-5.1)
[2016-12-15] MEDS ORDERED: CEFTRIAXONE SOD INJ 2,000 MG in DEXTROSE 5% 50ML 50 ML IV SCH (09:30)
--- NOTE | 2016-12-15 10:41 | Infectious Disease Progress Nt ---
Progress Note Date of Service Dec 15, 2016. Subjective Pt evaluation today including: conversation w/ patient, physical exam, chart review, lab review, review of studies, conversation w/ data virtualization consultant (Dr. Miller), review of inpatient medication list Patient is feeling very slightly improved today but continues to have severe headache and neck pain. His cultures are still pending. He has received 24 hours of abx at this time. Droplet precautions were D/C'd. His creatinine is improved at 1.00 this morning. Hep C screen was negative. HIV screen was negative. All Other Systems: Reviewed and Negative Medications Current Inpatient Medications Medications (Trade) Dose Ordered Sig/Darrin Route Start Time Stop Time Status Last Admin Dose Admin Hydromorphone HCl (Dilaudid Inj) 0.5 mg Q3H PRN IV 12/14/16 12:15 12/28/16 12:14 12/15/16 07:56 0.5 MG Acetaminophen (Tylenol Tab) 650 mg Q4H PRN PO 12/14/16 12:15 01/13/17 12:14 Al Hydrox/Mg Hydrox/Simethicone (Maalox Max Susp) 15 ml Q4H PRN PO 12/14/16 12:15 01/13/17 12:14 Magnesium Hydroxide (Milk Of Magnesia Susp) 30 ml Q6H PRN PO 12/14/16 12:15 01/13/17 12:14 Polyethylene (Miralax Powder Packet) 17 gm DAILY PRN PO 12/14/16 12:15 01/13/17 12:14 Zolpidem Tartrate (Ambien Tab) 5 mg HSZ PRN PO 12/14/16 12:15 01/13/17 12:14 12/14/16 21:36 5 MG Ondansetron HCl (Zofran Inj) 4 mg Q6H PRN IV 12/14/16 12:15 01/13/17 12:14 Atorvastatin Calcium (Lipitor Tab) 10 mg HS PO 12/14/16 21:00 01/13/17 20:59 12/14/16 21:33 10 MG Bupropion HCl 150 mg 150 mg QAM PO 12/15/16 08:00 01/14/17 08:59 12/15/16 07:56 150 MG Ceftriaxone Sodium 2000 mg/ Dextrose 70 ml @ 100 mls/hr Q24H IV 12/15/16 09:30 12/17/16 09:29 12/15/16 09:31 100 MLS/HR Acyclovir Sodium/ Dextrose (Zovirax Inj/D5 250ml) 265 ml @ 265 mls/hr Q8H IV 12/14/16 16:00 12/24/16 15:59 12/15/16 07:56 265 MLS/HR Ketorolac Tromethamine 15 mg 15 mg Q6H PRN IV 12/14/16 16:15 12/19/16 16:14 12/15/16 09:39 15 MG Dexamethasone Sodium Phosphate/ Syringe (Decadron Inj/ Syringe) 0.5 ml @ 1 mls/min Q6H IV 12/15/16 10:45 12/16/16 14:00 UNV Objective Vital Signs Date Time Temp Pulse Resp B/P Pulse Ox O2 Delivery O2 Flow Rate FiO2 12/15/16 07:55 Room Air 12/15/16 06:59 36.7 72 20 119/69 98 Room Air 12/15/16 04:38 12/15/16 00:19 36.8 80 20 112/61 95 Room Air 12/15/16 00:00 Room Air 12/14/16 18:43 Room Air 12/14/16 15:07 36.6 74 20 119/76 95 Room Air 12/14/16 13:20 36.7 83 18 153/83 94 Room Air 12/14/16 13:07 81 16 118/70 93 12/14/16 12:29 81 12/14/16 12:10 93 Room Air 12/14/16 12:00 82 16 118/70 12/14/16 11:00 112/68 12/14/16 10:56 37.5 82 16 116/66 93 Room Air Physical Exam General Appearance: WD/WN, no apparent distress Eyes: normal inspection, sclerae normal ENT: hearing grossly normal Neck: supple, trachea midline Respiratory/Chest: chest non-tender, lungs clear, normal breath sounds, no respiratory distress, no accessory muscle use Cardiovascular: regular rate, rhythm, no murmur Abdomen: normal bowel sounds, non tender, soft Extremities: normal range of motion Neurologic/Psychiatric: alert, normal mood/affect Skin: normal color, warm/dry, no rash Laboratory Results RUN DATE: 12/14/16 [facility] LAB PAGE 1 RUN TIME: 1157 Specimen Inquiry PATIENT: OSMAN SMALL Femi LOC: [facility] U # : [id number] AGE/SX: 51/M ROOM: REG : 12/14/[address]: Nash Bryant M.D. : 1965 BED: DIS : STATUS: REG ER TLOC: SPEC #: [id number] NIKOLAY: 12/14/16 STATUS: RES REQ #: [id number] RECD: 12/14/[address]: Nash Bryant M.D. SOURCE: CSF ENTR: 12/14/[address]: Ralph Philip M.D. SPDESC: ORDERED: CSF CULT/SMR COMMENTS: Comments to Programmer Analyst Consultant TUBE # 3 TUBE # TO USE FOR SPINAL FLUID CELL CULTURE= 3 Procedure Result Verified Site GRAM STAIN Final 12/14/16-1157 RESULT MANY WBCs SEEN NO ORGANISMS SEEN CSF CULTURE PENDING Item Value Date Time Gram Stain - Final Resulted 12/14/16 1035 Cerebral Spinal Fluid Blood Culture Received 12/14/16 0905 Blood Pending Blood Culture Received 12/14/16 0900 Blood Pending Last 24 Hours Test 12/14/16 15:53 12/15/16 06:55 HIV (1&2) Ab and P24 Ag, 4th Gener NEG Sodium Level 143 mmol/L Potassium Level 3.9 mmol/L Chloride Level 109 mmol/L Carbon Dioxide Level 27 mmol/L Anion Gap 7.0 mmol/L Blood Urea Nitrogen 12 mg/dl Creatinine 1.00 mg/dl Est Creatinine Clear Calc Drug Dose 88.2 ml/min Estimated GFR () 99.2 Estimated GFR (Non- 85.5 BUN/Creatinine Ratio 11.6 Random Glucose 98 mg/dl Calcium Level 7.8 mg/dl Magnesium Level 1.9 mg/dl Assessment and Plan Patient with meningitis likely of viral origin. He is currently on IV Ceftriaxone and Acyclovir. Will continue both pending culture results this afternoon. Also discussed restarting steroid with Dr. Miller to due continued severe headache. HIV and Hep C were negative. HSV studies pending. We will follow. Case reviewed and agree with above assessment, follow cultures and hsv pcr
[2016-12-15] MEDS: DEXAMETHASONE INJ 2 MG in SYRINGE 0 ML IV SCH ×2 (12:18→17:52)
[2016-12-15 14:53] VITALS: BP 122/73; PULSE 77; TEMP 36.9; O2SAT 97
--- NOTE | 2016-12-15 18:21 | Family Medicine Progress Note ---
Progress Note Date of Service Dec 15, 2016. Subjective Pt evaluation today including: conversation w/ patient, physical exam, lab review, review of studies Pain: complains of headache 6/10 Voiding: no voiding problems Patient was seen at the bedside. He continues to complain of headache but states that it is better than yesterday. He rates the headache as 6/10, dull, mostly on the frontal, and moving neck makes it worse. Still complains of stiff neck. Tolerating food well. Denies nausea, vomiting, eye pain, weakness, or any other additional symptoms. Constitutional: No chills, No fever ENT: No sore throat Respiratory: No cough, No dyspnea on exertion, No shortness of breath, No sputum, No wheezing Cardiovascular: No chest pain, No edema Abdomen: No constipation, No diarrhea, No nausea, No pain, No vomiting Musculoskeletal: No joint pain, No muscle pain Male : No dysuria Neurologic: + problem reported (headache (6/10)), No numbness/tingling, No paralysis, No weakness Skin: No rash Medications Current Inpatient Medications Medications (Trade) Dose Ordered Sig/Darrin Route Start Time Stop Time Status Last Admin Dose Admin Hydromorphone HCl (Dilaudid Inj) 0.5 mg Q3H PRN IV 12/14/16 12:15 12/28/16 12:14 12/15/16 07:56 0.5 MG Acetaminophen (Tylenol Tab) 650 mg Q4H PRN PO 12/14/16 12:15 01/13/17 12:14 Al Hydrox/Mg Hydrox/Simethicone (Maalox Max Susp) 15 ml Q4H PRN PO 12/14/16 12:15 01/13/17 12:14 Magnesium Hydroxide (Milk Of Magnesia Susp) 30 ml Q6H PRN PO 12/14/16 12:15 01/13/17 12:14 Polyethylene (Miralax Powder Packet) 17 gm DAILY PRN PO 12/14/16 12:15 01/13/17 12:14 Zolpidem Tartrate (Ambien Tab) 5 mg HSZ PRN PO 12/14/16 12:15 01/13/17 12:14 12/14/16 21:36 5 MG Ondansetron HCl (Zofran Inj) 4 mg Q6H PRN IV 12/14/16 12:15 01/13/17 12:14 Atorvastatin Calcium (Lipitor Tab) 10 mg HS PO 12/14/16 21:00 01/13/17 20:59 12/14/16 21:33 10 MG Bupropion HCl 150 mg 150 mg QAM PO 12/15/16 08:00 01/14/17 08:59 12/15/16 07:56 150 MG Ceftriaxone Sodium 2000 mg/ Dextrose 70 ml @ 100 mls/hr Q24H IV 12/15/16 09:30 12/17/16 09:29 12/15/16 09:31 100 MLS/HR Acyclovir Sodium/ Dextrose (Zovirax Inj/D5 250ml) 265 ml @ 265 mls/hr Q8H IV 12/14/16 16:00 12/24/16 15:59 12/15/16 15:36 265 MLS/HR Ketorolac Tromethamine 15 mg 15 mg Q6H PRN IV 12/14/16 16:15 12/19/16 16:14 12/15/16 15:35 15 MG Dexamethasone Sodium Phosphate/ Syringe (Decadron Inj/ Syringe) 0.5 ml @ 1 mls/min Q6H IV 12/15/16 12:00 12/16/16 14:00 12/15/16 17:52 1 MLS/MIN Objective Vital Signs Date Time Temp Pulse Resp B/P Pulse Ox O2 Delivery O2 Flow Rate FiO2 12/15/16 15:57 Room Air 12/15/16 14:53 36.9 77 22 122/73 97 Room Air 12/15/16 07:55 Room Air 12/15/16 06:59 36.7 72 20 119/69 98 Room Air 12/15/16 04:38 12/15/16 00:19 36.8 80 20 112/61 95 Room Air 12/15/16 00:00 Room Air 12/14/16 18:43 Room Air Physical Exam General Appearance: WD/WN, no apparent distress Neck: supple, trachea midline Respiratory/Chest: chest non-tender, lungs clear, normal breath sounds, no respiratory distress Cardiovascular: regular rate, rhythm, no edema, no murmur Abdomen: normal bowel sounds, non tender, soft Extremities: non-tender, no pedal edema Neurologic/Psychiatric: no motor/sensory deficits, alert, normal mood/affect, oriented x 3 Skin: normal color, warm/dry, no rash Laboratory Results Results Past 24 Hours Test 12/15/16 06:55 Range/Units Sodium Level 143 136-145 mmol/L Potassium Level 3.9 3.5-5.1 mmol/L Chloride Level 109 98-107 mmol/L Carbon Dioxide Level 27 21-32 mmol/L Anion Gap 7.0 3-11 mmol/L Blood Urea Nitrogen 12 7-18 mg/dl Creatinine 1.00 0.60-1.40 mg/dl Est Creatinine Clear Calc Drug Dose 88.2 ml/min Estimated GFR () 99.2 Estimated GFR (Non- 85.5 BUN/Creatinine Ratio 11.6 10-20 Random Glucose 98 70-99 mg/dl Calcium Level 7.8 8.5-10.1 mg/dl Magnesium Level 1.9 1.8-2.4 mg/dl Assessment and Plan This is a 51 y/o with history of depression and HLD presented to the ED with intense headache and stiff neck. LP performed in ED consistent with viral meningitis. Patient continues to complain of headache (03/18). 1. Headache - 2/2 to meningitics - On IV Toradol 15mg q6h prn, Dilaudid 0.5mg q3h prn - Add Decadron 2mg q6h X1day given no improvement with Toradol and Dilaudid. 2. Meningitis - It is most likely viral given the LP finding (clear, no xanthochromia, normal glucose, and elevated WBC and total protein). - Lyme, Hep C, HIV and influenza are negative. HSV is pending - ID was consulted and recommended to continue with Ceftrixone and acyclovir given elevated WBC and HSV is pending. HIV screen ordered. - Further management will be based on the result of the BCx (pending). - Will continue to appreciate ID recommendations 3. HLD - Continue with Lipitor 4. Depression - Continue with Wellbutrin 5. DVT prophylaxis - SCDs 6. Code Status - Full code Reviewed: Pt Seen/Exam by Me History still having severe headache. Constitutional: denies: fever Respiratory: negative: short of breath Cardiovascular: denies chest pain Gastrointestinal/Abdominal: negative: abdominal pain Neurological/Psych: positive: headache, negative: numbness, paresthesia, tingling, tremors, weakness General Appearance: no apparent distress Ears, Nose, Throat: hearing grossly normal Neck: other (still with stiffness) Respiratory: lungs clear, no respiratory distress Cardiovascular: regular rate, rhythm Neurologic/Psychiatric: alert, oriented x 3 Skin Characteristics: warm/dry Assessment/Plan I have reviewed the medical record and performed a history and physical examination of this patient today. I have discussed the case with Dr. Gallo. The above note reflects my findings, conclusions, and recommendations.
[2016-12-15] MEDS: ATORVASTATIN 10 MG TAB PO SCH (21:30)
[2016-12-16 00:06] VITALS: BP 118/70; PULSE 65; TEMP 36.8; O2SAT 96
[2016-12-16] MEDS: DEXAMETHASONE INJ 2 MG in SYRINGE 0 ML IV SCH ×3 (00:22→11:20)
[2016-12-16] MEDS: ACYCLOVIR SOD INJ 750 MG in DEXTROSE 5% 250ML 250 ML IV SCH ×2 (00:22→08:03)
[2016-12-16 07:47] LABS: HEMATOCRIT 37.3 % (42-52); MEAN CELL VOLUME 94.9 fL (80-100); MEAN CORPUSCULAR HEMOGLOBIN 34.1 pg (25-34); MEAN CORPUSCULAR HGB CONC 35.9 g/dl (32-36); MEAN PLATELET VOLUME 9.3 fL (7.4-10.4); PLATELET COUNT 184 K/uL (130-400); RED BLOOD COUNT 3.93 M/uL (4.7-6.1); WHITE BLOOD COUNT 7.53 K/uL (4.8-10.8)
[2016-12-16 08:00] VITALS: BP 128/80; PULSE 69; TEMP 36.9; O2SAT 95
[2016-12-16] MEDS: BuPROPion XL 150 MG TABCR PO SCH (08:03)
[2016-12-16 08:18] LABS: BUN/CREATININE RATIO 11.6 (10-20); CALCIUM 8.4 mg/dl (8.5-10.1); CREATININE 0.92 mg/dl (0.60-1.40); POTASSIUM 4.1 mmol/L (3.5-5.1)
[2016-12-16] MEDS ORDERED: VALA500T60 PO (09:56)
--- NOTE | 2016-12-16 10:03 | Discharge Instructions ---
Discharge Instructions Date of Service Dec 16, 2016. Admission Reason for Admission: Unspecified Viral Meningitis Discharge Discharge Diagnosis / Problem: Viral Meningitis Discharge Goals Goal(s): Decrease discomfort, Improve disease control, Therapeutic intervention Activity Recommendations Activity Limitations: per Instructions/Follow-up section . Instructions / Follow-Up Instructions / Follow-Up You were admitted for intense headache and found to have viral meningitis. Spinal fluid suggest of viral meningitis. Blood culture and spinal fluid culture are negative. HIV was negative. HSV still pending. You can take NSAIDs for headache. Don't exert yourself, take rest until you feel better. You will be prescribed antiviral medication Valtrex 1gm twice for 7 days. Please follow up with your primary doctor. Current Hospital Diet Patient's current hospital diet: Regular Diet Discharge Diet Recommended Diet: Regular Diet Pending Studies Studies pending at discharge: yes List of pending studies: HSV Medical Emergencies . Who to Call and When: Medical Emergencies: If at any time you feel your situation is an emergency, please call 911 immediately. . Non-Emergent Contact Non-Emergency issues call your: Primary Care Provider . . "Provider Documentation" section prepared by Israel Gallo. VTE Core Measure Inpt VTE Proph given/why not?: SCD's
--- NOTE | 2016-12-16 10:53 | Infectious Disease Progress Nt ---
Progress Note Date of Service Dec 16, 2016. Subjective Pt evaluation today including: conversation w/ patient, physical exam, chart review, lab review, review of studies, conversation w/ retail client solutions consultant, review of inpatient medication list WBC count this morning was 7.53. Creatinine was 0.92. CSF culture showing no growth to date. Blood cultures showing no growth. Herpes studies pending. Patient's headache is slightly improved this morning. He is ready to go home. I spoke with Dr. Gallo and Dr. Miller regarding this patient as well. All Other Systems: Reviewed and Negative Medications Current Inpatient Medications Medications (Trade) Dose Ordered Sig/Darrin Route Start Time Stop Time Status Last Admin Dose Admin Hydromorphone HCl (Dilaudid Inj) 0.5 mg Q3H PRN IV 12/14/16 12:15 12/28/16 12:14 12/15/16 07:56 0.5 MG Acetaminophen (Tylenol Tab) 650 mg Q4H PRN PO 12/14/16 12:15 01/13/17 12:14 Al Hydrox/Mg Hydrox/Simethicone (Maalox Max Susp) 15 ml Q4H PRN PO 12/14/16 12:15 01/13/17 12:14 Magnesium Hydroxide (Milk Of Magnesia Susp) 30 ml Q6H PRN PO 12/14/16 12:15 01/13/17 12:14 Polyethylene (Miralax Powder Packet) 17 gm DAILY PRN PO 12/14/16 12:15 01/13/17 12:14 Zolpidem Tartrate (Ambien Tab) 5 mg HSZ PRN PO 12/14/16 12:15 01/13/17 12:14 12/14/16 21:36 5 MG Ondansetron HCl (Zofran Inj) 4 mg Q6H PRN IV 12/14/16 12:15 01/13/17 12:14 Atorvastatin Calcium (Lipitor Tab) 10 mg HS PO 12/14/16 21:00 01/13/17 20:59 12/15/16 21:30 10 MG Bupropion HCl 150 mg 150 mg QAM PO 12/15/16 08:00 01/14/17 08:59 12/16/16 08:03 150 MG Acyclovir Sodium/ Dextrose (Zovirax Inj/D5 250ml) 265 ml @ 265 mls/hr Q8H IV 12/14/16 16:00 12/24/16 15:59 12/16/16 08:03 265 MLS/HR Ketorolac Tromethamine 15 mg 15 mg Q6H PRN IV 12/14/16 16:15 12/19/16 16:14 12/15/16 15:35 15 MG Dexamethasone Sodium Phosphate/ Syringe (Decadron Inj/ Syringe) 0.5 ml @ 1 mls/min Q6H IV 12/15/16 12:00 12/16/16 14:00 12/16/16 05:50 1 MLS/MIN Objective Vital Signs Date Time Temp Pulse Resp B/P Pulse Ox O2 Delivery O2 Flow Rate FiO2 12/16/16 08:00 Room Air 12/16/16 08:00 36.9 69 18 128/80 95 Room Air 12/16/16 00:10 Room Air 12/16/16 00:06 36.8 65 20 118/70 96 Room Air 12/15/16 20:00 Room Air 12/15/16 15:57 Room Air 12/15/16 14:53 36.9 77 22 122/73 97 Room Air Physical Exam General Appearance: WD/WN, no apparent distress Eyes: normal inspection, sclerae normal ENT: hearing grossly normal Neck: supple, trachea midline Respiratory/Chest: no respiratory distress, no accessory muscle use Cardiovascular: regular rate, rhythm Extremities: normal range of motion Neurologic/Psychiatric: alert, normal mood/affect Skin: normal color, warm/dry, no rash Laboratory Results RUN DATE: 12/16/16 [facility] LAB PAGE 1 RUN TIME: 1044 Specimen Inquiry PATIENT: OSMAN SMALL LOC: [facility] U # : [id number] AGE/SX: 51/M ROOM: [facility] REG : 12/14/[address]: Angela Miller M.D. : 1965 BED: 1 DIS : STATUS: ADM IN TLOC: SPEC #: [id number] NIKOLAY: 12/14/16 STATUS: RES REQ #: [id number] RECD: 12/14/[address]: Nash Bryant M.D. SOURCE: CSF ENTR: 12/14/[address] [facility] DR: Ralph Philip M.D. SPDESC: ORDERED: CSF CULT/SMR COMMENTS: Comments to [employer] TUBE # 3 TUBE # TO USE FOR SPINAL FLUID CELL CULTURE= 3 Procedure Result Verified Site GRAM STAIN Final 12/14/16-1157 RESULT MANY WBCs SEEN NO ORGANISMS SEEN CSF CULTURE Preliminary 12/16/16-1044 NO GROWTH TO DATE. Item Value Date Time Gram Stain - Final Resulted 12/14/16 1035 Cerebral Spinal Fluid Blood Culture - Preliminary Resulted 12/14/16 0905 Blood NO GROWTH TO DATE. Blood Culture - Preliminary Resulted 12/14/16 0900 Blood NO GROWTH TO DATE. Last 24 Hours Test 12/16/16 07:30 White Blood Count 7.53 K/uL Red Blood Count 3.93 M/uL Hemoglobin 13.4 g/dL Hematocrit 37.3 % Mean Corpuscular Volume 94.9 fL Mean Corpuscular Hemoglobin 34.1 pg Mean Corpuscular Hemoglobin Concent 35.9 g/dl RDW Standard Deviation 42.5 fL RDW Coefficient of Variation 12.3 % Platelet Count 184 K/uL Mean Platelet Volume 9.3 fL Sodium Level 142 mmol/L Potassium Level 4.1 mmol/L Chloride Level 108 mmol/L Carbon Dioxide Level 24 mmol/L Anion Gap 10.0 mmol/L Blood Urea Nitrogen 11 mg/dl Creatinine 0.92 mg/dl Est Creatinine Clear Calc Drug Dose 95.9 ml/min Estimated GFR () 109.7 Estimated GFR (Non- 94.6 BUN/Creatinine Ratio 11.6 Random Glucose 110 mg/dl Calcium Level 8.4 mg/dl Assessment and Plan Patient with meningitis likely of viral origin. He is currently on IV Ceftriaxone and Acyclovir. CSF culture showing no growth. Will D/C Ceftriaxone. Recommend continuing PO Valtrex x 7 days until herpes studies are available- may discontinue if negative. We will follow up with this patient. OK for D/C from ID perspective. Thanks Case reviewed and agree with above assessment.
[2016-12-16 11:14] VITALS: BP 128/80; PULSE 69; TEMP 36.9; O2SAT 95
--- NOTE | 2016-12-16 21:46 | Discharge Summary ---
Discharge Summary Date of Service Dec 16, 2016. (Israel Gallo MD) Discharge Summary Admission Date: Dec 14, 2016 at 12:17 Discharge Date: Dec 16, 2016 Discharge Disposition: Home Principal Diagnosis: Viral Meningitis Procedures: Patient Name: OSMAN SMALL Unit Number: [id number] Dictated: 12/14/16941 Transcribed: 12/14/16941 ARG Printed Date/Time: [~ rep prt dt]/[~ rep prt tm] [~ rep ct labl] - [~ rep ct ivnm] [facility] [place] [address] Dictated: 12/14/16941 Transcribed: 12/14/16941 ARG Printed Date/Time: [~ rep prt dt]/[~ rep prt tm] [~ rep ct labl] - [~ rep ct ivnm] CT HEAD WITHOUT CONTRAST (CT) CLINICAL HISTORY: Severe headache COMPARISON STUDY: No previous studies for comparison. TECHNIQUE: Axial CT of the brain is performed from the vertex to the skull base. IV contrast was not administered for this examination. CT DOSE: 614.27 mGy.cm FINDINGS: No intra or extra-axial mass lesions are visualized. There is no CT evidence of acute cortical infarction. There is no evidence of midline shift. There is no acute hemorrhage. No calvarial fractures are visualized. There is no evidence of pathologic ventricular dilatation. There is no evidence of acute sinusitis IMPRESSION: No acute intracranial findings Electronically signed by: Jan Hyde M.D. 12/14/2016 9:46 AM Dictated Date/Time: 12/14/2016 9:42 AM The status of this report is Signed. Draft = Not yet reviewed or approved by Radiologist. Signed = Reviewed and approved by Radiologist. <AttendingPhy></AttendingPhy> <FamilyPhy>Ralph Philip M.D.</FamilyPhy> < PrimaryPhy>Ralph Philip M.D.</PrimaryPhy> <UnitNumber>[id number]</ UnitNumber> <VisitNumber>[id number]</VisitNumber> <PatientName>OSMAN SMALL< /PatientName> <DateOfBirth>1965</DateOfBirth> <Location>[facility]</Location> < ServiceDate>12/14/16</ServiceDate> <MNE>ESINDI</MNE> <OrderingPhy>Nash Bryant M.D.</OrderingPhy> <OrderingPhyMNE>f rep ord dr arita</OrderingPhyMNE> < DictatingPhyMNE>f rep dict dr arita</DictatingPhyMNE> <CCListMNE>f rep ct mne</ CCListMNE> <AdmittingPhyMNE>f pt admit dr arita</AdmittingPhyMNE> <AttendingPhyMNE >f pt attend dr arita</AttendingPhyMNE> <ConsultingPhyMNE>f pt consult dr arita</ConsultingPhyMNE> <FamilyPhyMNE>f pt fam dr arita</FamilyPhyMNE> <OtherPhyMNE>f pt other dr arita</OtherPhyMNE> < PrimaryPhyMNE>f pt prim care dr arita</PrimaryPhyMNE> <ReferringPhyMNE>f pt referring dr arita</ReferringPhyMNE> CHEST ONE VIEW PORTABLE CLINICAL HISTORY: Evaluate Fever/Sepsis COMPARISON STUDY: None FINDINGS: The heart is normal in size. There is no failure. There is no focal pulmonary consolidation. There is an 11 mm nodule at the right lung base, possibly representing a summation with a nipple shadow. No pleural effusions are visualized.[ IMPRESSION: 11 mm opacity at the right lung base. This may represent a summation with a nipple shadow. A follow-up study with nipple markers and oblique views could be obtained for confirmation. There is no acute parenchymal consolidation. Electronically signed by: Jan Hyde M.D. 12/14/2016 9:20 AM Dictated Date/Time: 12/14/2016 9:19 AM The status of this report is Signed. Draft = Not yet reviewed or approved by Radiologist. Signed = Reviewed and approved by Radiologist. <AttendingPhy></AttendingPhy> <FamilyPhy>Ralph Philip M.D.</FamilyPhy> < PrimaryPhy>Ralph Philip M.D.</PrimaryPhy> <UnitNumber>[id number]</ UnitNumber> <VisitNumber>[id number]</VisitNumber> <PatientName>OSMAN SMALL< /PatientName> <DateOfBirth>1965</DateOfBirth> <Location>[facility]</Location> < ServiceDate>12/14/16</ServiceDate> <MNE>ESINDI</MNE> <OrderingPhy>Nash Bryant M.D.</OrderingPhy> <OrderingPhyMNE>f rep ord dr arita</OrderingPhyMNE> < DictatingPhyMNE>f rep dict dr arita</DictatingPhyMNE> <CCListMNE>f rep ct juan j</ CCListMNE> <AdmittingPhyMNE>f pt admit dr arita</AdmittingPhyMNE> <AttendingPhyMNE >f pt attend dr arita</AttendingPhyMNE> <ConsultingPhyMNE>f pt consult dr arita</ConsultingPhyMNE> <FamilyPhyMNE>f pt fam dr arita</FamilyPhyMNE> <OtherPhyMNE>f pt other dr arita</OtherPhyMNE> < PrimaryPhyMNE>f pt prim care dr arita</PrimaryPhyMNE> <ReferringPhyMNE>f pt referring dr arita</ReferringPhyMNE> (Israel Gallo MD) Medication Reconciliation New Medications: Valacyclovir (Valtrex) 500 Mg Tab 1 GM PO BID for 7 Days, TAB Continued Medications: Atorvastatin (Lipitor) 10 Mg Tab 10 MG PO HS, TAB Bupropion Hcl (Wellbutrin Xl) 150 Mg Tab 150 MG PO QAM for 30 Days, #30 TAB 2 Refills Discharge Exam Patient was seen at the bedside. He was comfortably lying down on his bed. He states that he is feeling better than yesterday. Still have headache but it's manageable. Denies any other complaints. Review of Systems: Constitutional: No chills, No fatigue, No fever, No weakness Respiratory: No cough, No dyspnea at rest, No dyspnea on exertion, No shortness of breath, No sputum, No wheezing Cardiovascular: No chest pain, No edema Abdomen: No constipation, No diarrhea, No nausea, No pain, No vomiting Musculoskeletal: No joint pain, No muscle pain Genitourinary - Male: No dysuria Neurologic: + problem reported (complains of headache but it's improved from yesterday), No numbness/tingling, No paralysis, No weakness Integumentary: No rash Physical Exam: General Appearance: WD/WN, no apparent distress Neck: supple, trachea midline Respiratory/Chest: chest non-tender, lungs clear, normal breath sounds, no respiratory distress, no accessory muscle use Cardiovascular: regular rate, rhythm, no edema, no murmur Abdomen / GI: normal bowel sounds, non tender, soft Extremities: no calf tenderness, no pedal edema, non-tender Neurologic/Psychiatric: alert, normal mood/affect, oriented x 3 Skin: normal color, warm/dry, no rash (Israel Gallo MD) headache mostly resolved Review of Systems: Constitutional: No fever Respiratory: No shortness of breath Cardiovascular: No chest pain Physical Exam: General Appearance: no apparent distress Neck: supple Respiratory/Chest: lungs clear, no respiratory distress Cardiovascular: regular rate, rhythm Abdomen / GI: normal bowel sounds, non tender, soft Neurologic/Psychiatric: alert, oriented x 3 Skin: warm/dry (Angela Miller M.D.) Hospital Course This is a 51 y/o with history of depression and HLD presented to the ED with intense headache and stiff neck. He was in [place] over the weekend and upon returning developed an intense headache which did not respond to standard over- the-counter treatment. He describes an associated fever and nausea. He does not recall any sick contacts during his [place] trip. [facility] and did not go hiking in the surrounding area. Viral Meningitis LP finding (clear, no xanthochromia, normal glucose, and elevated WBC and total protein) in ED suggest of viral meningitis. Lyme, Hep C, HIV and influenza are negative. HSV is still pending. ID was consulted. Patient was initially started on Ceftrixone and acyclovir given elevated WBC, pending BCx and HSV. Given negative blood culture Ceftriaxone was discontinued. Patient was send home with PO Valtrex 1gm BID x 7 days until herpes studies are available. Patient may discontinued Valtrex if herpes studies is negative. ID will follow up with him. Total Time Spent: Greater than 30 minutes This includes examination of the patient, discharge planning, medication reconciliation, and communication with other providers. (Israel Gallo MD) I have reviewed the medical record and performed a history and physical examination of this patient today. I have discussed the case with Dr Gallo. The above note reflects my findings, conclusions, and recommendations. Total Time Spent: Greater than 30 minutes (35) (Angela Miller M.D.) Discharge Instructions Please refer to the electronic Patient Visit Report (Discharge Instructions) for additional information. (Israel Gallo MD) Additional Copies To Ralph Philip M.D.
[2016-12-18 19:33] LABS: HERPES SIMPLEX AB IGG-1 0.02; HERPES SIMPLEX AB IGG-2 4.11; HSV1 AB IGM Negative (Negative); HSV2 AB IGM Negative (Negative)
== END 2016-12-16 13:25 | disposition home or self-care (01) | DRG 76 ==
LOC: ENRESERVDT → ENRESERVTM → C.EDB 08:34 → UNDOADMIN 12:17 → C.MS4W 12:17
PROVIDERS: ADMIT Internal Medicine; ATTEND Family Medicine
PROC: 009U3ZX Drainage of Spinal Canal, Percutaneous Approach, Diagnostic (ICD-10-PCS; principal; 2016-12-14)
DX: A87.9 Viral meningitis, unspecified (principal); E78.5 Hyperlipidemia, unspecified; F32.9 Major depressive disorder, single episode, unspecified; Z82.49 Family history of ischemic heart disease and other diseases of the circulatory system; Z82.0 Family history of epilepsy and other diseases of the nervous system; Z88.0 Allergy status to penicillin

== ENCOUNTER → 2016-12-27 | Outpatient (CLI) | payer BC ==
[~2016-12-27] MED LIST changes: +ATOR10TA88 PO; +BUPRTAB PO; -CLC150 PO
--- NOTE | 2016-12-27 08:52 | DIAGNOSTIC IMAGING REPORT ---
CHEST OBLIQUES ONLY CLINICAL HISTORY: NIPPLE MARKERS FOR NIPPLE SHADOW COMPARISON STUDY: 12/14/2016 FINDINGS: Blank projections demonstrate the density previously described to represent overlap artifact of accommodation of nipple shadow and underlying pulmonary vasculature. Lung bases are considered clear IMPRESSION: Nodules right lung base appears represent overlap artifact. Electronically signed by: Eric Luna M.D. 12/27/2016 8:50 AM Dictated Date/Time: 12/27/2016 8:49 AM
== END | disposition home or self-care (01) ==
LOC: C.RAD1850 08:34
PROVIDERS: ATTEND Family Medicine
DX: R91.1 Solitary pulmonary nodule (principal)